=== PATIENT | female | born 1935 | race Caucasian/White ===

== ENCOUNTER 2022-02-19 17:52 | Emergency (ER) | payer SELFPAY ==
[~2022-02-19] VITALS: Ht 152.4 cm; Wt 50.0 kg
[2022-02-19 18:23] VITALS: BP 151/55
== END 2022-02-19 21:20 | disposition left against medical advice (07) ==
LOC: ER 17:52
DX: Z53.21 Procedure and treatment not carried out due to patient leaving prior to being seen by health care provider (principal); I10 Essential (primary) hypertension; Z98.890 Other specified postprocedural states